=== PATIENT | female | born 1985 ===

== ENCOUNTER 2021-12-04 06:29 | Inpatient (IN) | payer MEDICAID ==
[~2021-12-04 06:29] MED LIST: Bupivacaine 0.25% 10 ML SDV ONE; Lidocaine 1% 10 ML MDV ONE; Lidocaine 2% with EPINEPHrine 1:200,000 20 ML SDV ONE; Sodium Bicarbonate 8.4% 50 MEQ/50 ML SDV ONE
[2021-12-04] MEDS ORDERED: Lidocaine 1% 50 ML MDV INJECT PRN (07:22)
[2021-12-04] MEDS ORDERED: Ondansetron 4 MG/2 ML SDV IVPUSH PRN ×2 (07:22→16:59)
[2021-12-04] MEDS ORDERED: Nalbuphine 10 MG/1 ML Vial IVPUSH PRN (07:22)
[2021-12-04] MEDS ORDERED: Calcium Carbonate 500 MG Tab.Chew PO PRN (07:22)
[2021-12-04] MEDS ORDERED: Acetaminophen 325 MG Tab PO PRN (07:22)
[2021-12-04] MEDS ORDERED: Oxytocin/Lactated Ringers 10 UNIT/1,000 ML BAG IV SCH ×2 (07:30)
[2021-12-04] MEDS ORDERED: Lactated Ringers 1,000 ML ONE (08:42)
[2021-12-04] MEDS: Lactated Ringers 1,000 ML IV SCH ×2 (09:44→13:52)
[2021-12-04] MEDS ORDERED: ePHEDrine 50 MG/ML SDV IVPUSH PRN ×2 (14:11→17:32)
[2021-12-04] MEDS ORDERED: Bupivacaine/fentaNYL/NS 100 ML Bag EPIDUR PRN (14:11)
[2021-12-04] MEDS ORDERED: fentaNYL 100 MCG/2 ML SDV EPIDUR PRN (14:11)
[2021-12-04] MEDS ORDERED: diphenhydrAMINE 50 MG/ML SDV IVPUSH PRN ×3 (14:11→17:32)
[2021-12-04] MEDS ORDERED: fentaNYL 100 MCG/2 ML SDV ONE (14:14)
[2021-12-04] MEDS ORDERED: ePHEDrine 50 MG/ML SDV ONE (15:33)
[2021-12-04] MEDS ORDERED: Ondansetron 4 MG/2 ML SDV ONE (15:34)
[2021-12-04] MEDS ORDERED: Oxytocin 10 Units/1 ML SDV ONE (15:35)
[2021-12-04] MEDS ORDERED: ceFAZolin 1 GM Vial ONE (15:37)
[2021-12-04] MEDS ORDERED: Ketorolac 30 MG/ML SDV ONE ×2 (15:46→15:47)
[2021-12-04] MEDS ORDERED: Morphine PF 10 MG/10 ML SDV ONE (15:47)
[2021-12-04] MEDS ORDERED: fentaNYL 100 MCG/2 ML SDV IVPUSH PRN (16:59)
[2021-12-04] MEDS ORDERED: Dextrose 5%-Lactated Ringers 1,000 ML IV SCH (17:32)
[2021-12-04] MEDS ORDERED: Acetaminophen/oxyCODONE 325-5 MG Tab PO PRN (17:32)
[2021-12-04] MEDS ORDERED: Naloxone 0.4 MG/ML SDV IVPUSH PRN (17:32)
[2021-12-04] MEDS ORDERED: ceFAZolin 2 GM in Premix Bag 1 BAG IV ONE ×2 (23:00→23:39)
[2021-12-05] MEDS ORDERED: ceFAZolin 2 GM in Sodium Chloride 0.9% 50 ML IV ONE (00:45)
[2021-12-05] MEDS: Acetaminophen/oxyCODONE 325-5 MG Tab PO PRN ×4 (00:59→22:26)
[2021-12-05] MEDS: Ibuprofen 600 MG Tab PO PRN ×2 (09:32→17:39)
[2021-12-06] MEDS: Acetaminophen/oxyCODONE 325-5 MG Tab PO PRN ×3 (08:25→19:57)
[2021-12-06] MEDS: Ibuprofen 600 MG Tab PO PRN ×2 (13:52→19:57)
[2021-12-06] MEDS: Docusate Sodium 100 MG Cap PO PRN (22:43)
[2021-12-07] MEDS: Acetaminophen/oxyCODONE 325-5 MG Tab PO PRN ×2 (01:48→12:05)
[2021-12-07] MEDS ORDERED: Diphtheria,Pertussis(Acell),Tetanus Vaccine 0.5 ML Syringe IM ONE (11:39)
[2021-12-07] MEDS: Docusate Sodium 100 MG Cap PO PRN (12:05)
[2021-12-07] MEDS: Ibuprofen 600 MG Tab PO PRN (12:05)
== END 2021-12-07 12:56 | disposition home or self-care (01) | DRG 788 ==
LOC: JD.OBCHECK 06:29 → JD.OB 06:30 → JD.OBCHECK 06:44 → UNDODISOB 11:00 → OBSVTOIN 16:43 → JD.OB 17:34 → JD.MS 12-07 02:19
PROVIDERS: ADMIT Obstetrics & Gynecology; ATTEND Obstetrics & Gynecology
PROC: 10D00Z1 Extraction of Products of Conception, Low, Open Approach (ICD-10-PCS; principal; 2021-12-07)
PROC: 3E0234Z Introduction of Serum, Toxoid and Vaccine into Muscle, Percutaneous Approach (ICD-10-PCS; 2021-12-07)
DX: O69.0XX0 Labor and delivery complicated by prolapse of cord, not applicable or unspecified (principal); Z3A.39 39 weeks gestation of pregnancy; Z37.0 Single live birth; O32.1XX0 Maternal care for breech presentation, not applicable or unspecified; Z20.822 Contact with and (suspected) exposure to COVID-19; Z23 Encounter for immunization
CPT/HCPCS: 01967; 01968; 36415; 59025; 74018; 74018-26; 85025; 86592; 86850; 86900; 86901; 90471; 90715; A9270-GY; J0690; J1885; J2274; J2370; J2405; J2590; J3010; J3490; J7120; J7121; U0002